=== PATIENT | female | born 1950 | race Caucasian/White ===

== ENCOUNTER 2017-01-05 01:51 | Emergency (ER) | payer MEDICARE, OTHER ==
[2017-01-05 01:58] VITALS: BP 150/64
[2017-01-05] MEDS ORDERED: Azithromycin TAB* 250 MG PO ONE (02:16)
[2017-01-05] MEDS ORDERED: Acetaminophen TAB* 325 MG PO ONE (02:16)
--- NOTE | 2017-01-06 12:45 | ED ---
Fauzia Arzate Alfonso, scribed for Migel Singh MD on 01/05/17 at 0215 . Complex/Multi-Sys Presentation - HPI Summary HPI Summary: This patient is a 66 year old F presenting to [facility] accompanied by with a chief complaint of left ear ache since a week and a half ago, worse since yesterday. The patient rates the pain 7/10 in severity. Symptoms aggravated by nothing. Symptoms alleviated by nothing. Symptoms not alleviated by ibuprofen. Patient reports sore throat, and intermittent left thigh pain. PMHx includes DM and HTN. - History Of Current Complaint Chief Complaint: EDEarPain Time Seen by Provider: 01/05/17 02:05 Hx Obtained From: Patient Onset/Duration: Sudden Onset, Lasting Weeks, Worse Since - yesterday Timing: Constant Severity Currently: Moderate Aggravating Factor(s): nothing Alleviating Factor(s): nothing Associated Signs And Symptoms: Positive: Other - sore throat, and intermittent left thigh pain - Allergies/Home Medications Allergies/Adverse Reactions: Allergies Allergy/AdvReac Type Severity Reaction Status Date / Time BEE STINGS Allergy Intermediate Swelling Uncoded 01/18/12 19:55 SAND FLIES Allergy Intermediate LETHARGY, Uncoded 01/18/12 19:55 SWELLING MOSQUITOS Allergy SWELLING, Uncoded 01/18/12 19:55 FEVER PMH/Surg Hx/FS Hx/Imm Hx Endocrine/Hematology History: Reports: Hx Diabetes Denies: Hx Thyroid Disease Cardiovascular History: Reports: Hx Hypertension Respiratory History: Denies: Hx Asthma, Hx Chronic Obstructive Pulmonary Disease (COPD) GI History: Denies: Hx Ulcer - Surgical History Surgery Procedure, Year, and Place: 3 C-SECTIONS Infectious Disease History: No Infectious Disease History: Denies: Hx Hepatitis, Hx Human Immunodeficiency Virus (HIV), Traveled Outside the [place] in Last 30 Days - Family History Known Family History: Positive: Hypertension, Diabetes - Social History Alcohol Use: Rare Substance Use Type: Reports: None Hx Tobacco Use: No Review of Systems Positive: Sore Throat, Ear Ache - left Positive: Other - intermittent left thigh pain All Other Systems Reviewed And Are Negative: Yes Physical Exam - Summary Physical Exam Summary: VITAL SIGNS: Reviewed. GENERAL: Patient is a well-developed and nourished female who is lying comfortable in the stretcher. Patient is not in any acute respiratory distress. HEAD AND FACE: No signs of trauma. No ecchymosis, hematomas or skull depressions. No sinus tenderness. EYES: PERRLA, EOMI x 2, No injected conjunctiva, no nystagmus. EARS: Hearing grossly intact. Left TM bulging and erythematous. MOUTH: Oropharynx within normal limits. NECK: Supple, trachea is midline, no adenopathy, no JVD, no carotid bruit, no c- spine tenderness, neck with full ROM. CHEST: Symmetric, no tenderness at palpation LUNGS: Clear to auscultation bilaterally. No wheezing or crackles. CVS: Regular rate and rhythm, S1 and S2 present, no murmurs or gallops appreciated. ABDOMEN: Soft, non-tender. No signs of distention. No rebound no guarding, and no masses palpated. Bowel sounds are normal. EXTREMITIES: FROM in all major joints, no edema, no cyanosis or clubbing. NEURO: Alert and oriented x 3. No acute neurological deficits. Speech is normal and follows commands. SKIN: Dry and warm Triage Information Reviewed: Yes Vital Signs On Initial Exam: Initial Vitals Temp Pulse Resp BP Pulse Ox 97.4 F 79 18 150/64 99 01/05/17 01:55 01/05/17 01:55 01/05/17 01:55 01/05/17 01:55 01/05/17 01:55 Vital Signs Reviewed: Yes Diagnostics - Vital Signs Vital Signs Temp Pulse Resp BP Pulse Ox 01/05/17 01:55 97.4 F 79 18 150/64 99 - Laboratory Lab Statement: Any lab studies that have been ordered have been reviewed, and results considered in the medical decision making process. Complex Multi-Symp Course/Dx Assessment/Plan: This patient is a 66 year old F presenting to [facility] accompanied by with a chief complaint of left ear ache since a week and a half ago, worse since yesterday. The patient rates the pain 7/10 in severity. Symptoms aggravated by nothing. Symptoms alleviated by nothing. Symptoms not alleviated by ibuprofen. Patient reports sore throat, and intermittent left thigh pain. PMHx includes DM and HTN. Physical exam reveals left TM bulging and erythema. Therefore, the patient has otitis media. In the ED course the patient was given acetaminophen and Zithromax. Patient will be discharged with prescription for Zithromax and follow up from PCP. The patient is agreeable with this plan. The patient is hemodynamically stable and alert and oriented x3. - Diagnoses Provider Diagnoses: Left otitis media Discharge - Discharge Plan Condition: Stable Disposition: HOME Prescriptions: Azithromycin TAB* [Zithromax TAB (Z-JOSELIN) 250 mg #6 tabs] 250 mg PO DAILY #4 tab Patient Education Materials: Otitis Media (ED) Referrals: Teresa Tay MD [Primary Care Provider] - 3 Days Additional Instructions: RETURN TO THE EMERGENCY DEPARTMENT FOR CHANGING OR WORSENING SYMPTOMS. The documentation as recorded by the Fauzia caro Alfonso accurately reflects the service I personally performed and the decisions made by Francisco mayfield Walter, MD.
== END 2017-01-05 02:31 | disposition home or self-care (01) ==
LOC: ED 01:51
DX: H66.92 Otitis media, unspecified, left ear (principal); E11.9 Type 2 diabetes mellitus without complications; I10 Essential (primary) hypertension
CPT/HCPCS: 99282; A9270-GY

== ENCOUNTER 2017-04-14 19:43 | Emergency (ER) | payer MEDICARE, OTHER ==
[2017-04-14 19:58] VITALS: BP 157/78
[2017-04-14] MEDS ORDERED: Albuterol/Ipratropium NEB.SOL* Albuterol 2.5 MG/Ipratropium 0.5 MG 3 ML INH ONE (20:14)
--- NOTE | 2017-04-14 20:29 | UC ---
Bismark Arzate Gabriel, scribed for Pati Chen MD on 04/14/17 at 2003 . FLU HPI - HPI Summary HPI Summary: This patient is a 67 year old F presenting to [facility] accompanied by her with a chief complaint of flu like illness that began 3 weeks ago. Pt states her was sick. Pt states then she developed body aches, fatgiue and chills. Pt states after 4-5 days started to feel better. Since this time progressive cough, wheeze and sinus congestion. + mild sore throat. Non productive cough. The patient rates the pain 4/10 in severity. Patient reports fatigue, chest, congestion, cough, HOOKER, post nasal drip, and ear pain. No fevers , chills, rash. Pt denies current fevers, chills + mild fatigue + po no n/v/ d. Pt's medications reviewed this visit - History of Current Complaint Chief Complaint: UCRespiratory Stated Complaint: FLU-LIKE SYMPTOMS Time Seen by Provider: 04/14/17 19:48 Hx Obtained From: Patient, Family/Spool Fixer ?: No Onset/Duration: Lasting Weeks - 3, Still Present Severity Currently: Mild Severity Initially: Mild Pain Intensity: 4 Pain Scale Used: 0-10 Numeric Associated Signs & Symptoms: Positive: Cough, Headache - Allergy/Home Medications Allergies/Adverse Reactions: Allergies Allergy/AdvReac Type Severity Reaction Status Date / Time BEE STINGS Allergy Intermediate Swelling Uncoded 04/14/17 19:57 SAND FLIES Allergy Intermediate LETHARGY, Uncoded 04/14/17 19:57 SWELLING MOSQUITOS Allergy SWELLING, Uncoded 04/14/17 19:57 FEVER Home Medications: Home Medications Dextromethorphan-Phenylephrine [Daytime Cold & Flu Relief 10-5-325 mg] 1 cap PO 04/14/17 [History] Ibuprofen [Advil] 200 mg PO 04/14/17 [History] PMH/Surg Hx/FS Hx/Imm Hx Previously Healthy: No Endocrine History: Diabetes - type 2 Other Cardiovascular History: HTN Other History Of: Negative For: HIV, Hepatitis B - Surgical History Surgical History: Yes Surgery Procedure, Year, and Place: 3 C-SECTIONS - Family History Known Family History: Positive: Hypertension Negative: Respiratory Disease, Seizure Disorder - Social History Occupation: Retired Lives: With Family Alcohol Use: Rare Substance Use Type: None Smoking Status (MU): Never Smoked Tobacco Review of Systems Constitutional: Fatigue Skin: Negative Eyes: Negative ENT: Ear Ache, Other - post nasal drip Respiratory: Cough, Other - chest congestion Neurological: Headache All Other Systems Reviewed And Are Negative: Yes Physical Exam Triage Information Reviewed: Yes Appearance: Well-Appearing, No Pain Distress, Well-Nourished Vital Signs: Initial Vital Signs Temp 98.6 F 04/14/17 19:52 Pulse 97 04/14/17 19:52 Resp 18 04/14/17 19:52 BP 157/78 04/14/17 19:52 Pulse Ox 98 04/14/17 19:52 Vital Signs Reviewed: Yes Eye Exam: Normal ENT: Positive: Sinus tenderness - frontal and max, Other - TM x 2 clear + nasal congestion - boggy full turbinates +PND uvula mildine no exudate, no erythema Dental Exam: Normal Neck: Positive: Supple Respiratory: Positive: Other: - + scatterd rhonchi and wheeze no retractions no accessory muscle use + speaking full easy sentences Cardiovascular Exam: Normal Cardiovascular: Positive: RRR, No Murmur, Pulses Normal Abdominal Exam: Normal Abdomen Description: Positive: Nontender, No Organomegaly, Soft Bowel Sounds: Positive: Present Musculoskeletal Exam: Normal Musculoskeletal: Positive: Strength Intact Neurological Exam: Normal Neurological: Positive: Alert Psychological Exam: Normal Psychological: Positive: Normal Response To Family Skin Exam: Normal Diagnostics - Radiology CXR Radiology Interpretation Completed By: Radiologist - NO ACTIVE DISEASE. Re-Evaluation - Re-Evaluation Second Eval Re-Evaluation Time: 20:53 Change: Improved - Pt improved following neb flu and cxr neg Will d.c with MDI , doxy hydrate secretion precaution PCP f/u Pt comfortable and in agreement with plan Flu Course/Dx - Course Course Of Treatment: Pt with cough, congestion, wheeze progressive x 1 week. VSS. pt with scattered wheeze and rhonci on exam. Will check CXR, flu. neb. reassess - Differential Dx/Diagnosis Provider Diagnoses: bronchitis Discharge - Discharge Plan Condition: Stable Disposition: HOME Prescriptions: DOXYcycline CAP(*) [DOXYcycline 100MG CAP(*)] 100 mg PO BID #14 cap Patient Education Materials: Acute Bronchitis (ED) Referrals: Teresa Tay MD [Primary Care Provider] - Additional Instructions: - Stay well hydrated. Drink plenty of non-alcoholic, non-caffinated beverages. - After you have been on antibiotics for 2 days - change your toothbrush and your pillowcase. These infections are spread by secretions - do NOT share eating or drinking utensils - clean items you share with other people such as cell phones, computer mouse, TV remote, computer tablets, etc - Use inhaler every 4 hours today and tomorrow, then every 4hours as needed - Contact your doctor to schedule a follow-up appointment. Contact your doctor or return with questions or concerns The documentation as recorded by the Bismark caro Gabriel accurately reflects the service I personally performed and the decisions made by me, Pati Chen MD.
--- NOTE | 2017-04-14 20:38 | RAD ---
INDICATION: Cough. Wheezing. COMPARISON: None TECHNIQUE: PA and lateral dual-energy views were obtained. FINDINGS: Bones/Soft Tissues: There are no acute bony findings. Cardiomediastinal: The cardiomediastinal silhouette is normal. Lungs: There are no infiltrates. Pleura: There are no pleural effusions. Other: None IMPRESSION: NO ACTIVE DISEASE.
[2017-04-14] MEDS ORDERED: Albuterol HFA INHALER* 8 gm MDI INH ONE (21:11)
[2017-04-14] MEDS ORDERED: DOXYcycline CAP(*) 100 MG PO ONE (21:12)
== END 2017-04-14 21:35 | disposition home or self-care (01) ==
LOC: UCEAST 19:43
DX: J40 Bronchitis, not specified as acute or chronic (principal)
CPT/HCPCS: 71046; 87502; 99213; A9270-GY; G0463

== ENCOUNTER 2017-06-01 20:37 | Emergency (ER) | payer MEDICARE, OTHER ==
[2017-06-01 20:49] VITALS: BP 159/89
[2017-06-01] MEDS ORDERED: diPHENhydraMINE PO* 50 MG PO ONE (21:18)
[2017-06-01] MEDS ORDERED: predniSONE TAB* 20 MG PO ONE (21:18)
--- NOTE | 2017-06-01 21:30 | UC ---
Skin Complaint HPI - HPI Summary HPI Summary: Developed several itchy large, red welts on L forearm, neck/shoulder starting 2 days ago while visiting cousin's house. Was staying at parents and hotel in the nights prior to this. Now pt and are home. has a few small bites on his RFA only. Denies fever, cough, or other illness. 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 Onset/Duration: Gradual Onset, Lasting Days Timing: Constant Onset Severity: Mild Current Severity: Moderate Pain Intensity: 0 Location: Discrete Character: Swelling, Pruritus, Redness Aggravating Factor(s): Touch Alleviating Factor(s): Nothing Associated Signs & Symptoms: Positive: Rash Related History: Insect Bite/Sting <Debby Espinoza - Last Filed: 06/01/17 21:25> <Pati Chen - Last Filed: 06/01/17 21:33> - History of Current Complaint Chief Complaint: UCSkin Time Seen by Provider: 06/01/17 21:04 Stated Complaint: INSECT BITE - Allergy/Home Medications Allergies/Adverse Reactions: Allergies Allergy/AdvReac Type Severity Reaction Status Date / Time Penicillins Allergy Rash Verified 06/01/17 20:51 BEE STINGS Allergy Intermediate Swelling Uncoded 04/14/17 19:57 SAND FLIES Allergy Intermediate LETHARGY, Uncoded 04/14/17 19:57 SWELLING MOSQUITOS Allergy SWELLING, Uncoded 04/14/17 19:57 FEVER Review of Systems Constitutional: Negative Skin: Other - multiple red welts Eyes: Negative ENT: Negative Respiratory: Negative Cardiovascular: Negative Gastrointestinal: Negative Genitourinary: Negative Motor: Negative Neurovascular: Negative Musculoskeletal: Negative Neurological: Negative Psychological: Negative Is Patient Immunocompromised?: No All Other Systems Reviewed And Are Negative: Yes <Debby Espinoza - Last Filed: 06/01/17 21:25> PMH/Surg Hx/FS Hx/Imm Hx Endocrine History: Diabetes Cardiovascular History: Hypertension Other History Of: Negative For: HIV, Hepatitis B - Surgical History Surgical History: Yes Surgery Procedure, Year, and Place: 3 C-SECTIONS - Family History Known Family History: Positive: Hypertension Negative: Respiratory Disease, Seizure Disorder - Social History Lives: With Family Alcohol Use: Rare Substance Use Type: None Smoking Status (MU): Never Smoked Tobacco <Debby Espinoza - Last Filed: 06/01/17 21:25> Physical Exam Triage Information Reviewed: Yes Appearance: No Pain Distress, Obese Vital Signs: Initial Vital Signs Temp 97.3 F 06/01/17 20:43 Pulse 87 06/01/17 20:43 Resp 16 06/01/17 20:43 BP 159/89 06/01/17 20:43 Pulse Ox 100 06/01/17 20:43 Vital Signs Reviewed: Yes Eye Exam: Normal Eyes: Positive: Conjunctiva Clear ENT Exam: Normal ENT: Positive: Normal ENT inspection, Hearing grossly normal, Pharynx normal, TMs normal Neck exam: Normal Neck: Positive: Supple, Nontender, No Lymphadenopathy Respiratory Exam: Normal Respiratory: Positive: Chest non-tender, Lungs clear, Normal breath sounds, No respiratory distress, No accessory muscle use Cardiovascular Exam: Normal Cardiovascular: Positive: RRR, No Murmur Musculoskeletal Exam: Normal Musculoskeletal: Positive: Strength Intact, ROM Intact Neurological Exam: Normal Psychological Exam: Normal Skin Exam: Other - Multiple 2-10cm welt with vesicles and crusting on LFA, neck/ shoulders <Debby Espinoza - Last Filed: 06/01/17 21:25> Vital Signs: Initial Vital Signs Temp 97.3 F 06/01/17 20:43 Pulse 87 06/01/17 20:43 Resp 16 06/01/17 20:43 BP 159/89 06/01/17 20:43 Pulse Ox 100 06/01/17 20:43 <Pati Chen - Last Filed: 06/01/17 21:33> Course/Dx - Diagnoses Provider Diagnoses: bed bug bites <Debby Espinoza - Last Filed: 06/01/17 21:25> Discharge <Debby Espinoza - Last Filed: 06/01/17 21:25> <Pati Chen - Last Filed: 06/01/17 21:33> - Discharge Plan Condition: Stable Disposition: HOME Prescriptions: predniSONE TAB* [Deltasone TAB*] 40 mg PO DAILY #4 tab Patient Education Materials: Bed Bugs (ED) Referrals: Teresa Tay MD [Primary Care Provider] - Additional Instructions: As we discussed, there are no dangers or illnesses spread through bed bug bites -- the main problem is discomfort. Wash the belongings you traveled with in a hot washer and put everything through the dryer twice. Bag up anything that cannot be washed for at least 2 months. If you are still uncomfortable after 3 days of prednisone, please see your primary care provider for recheck. You can take diphenhydramine (benadryl) 25- 50mg up to 4 times per day. Attestation Statement User Type: Provider - I was available for consult. This patient was seen by the advanced practice provider. The patient was not presented to, seen by, or examined by me.-Dayana <Pati Chen - Last Filed: 06/01/17 21:33>
== END 2017-06-01 21:30 | disposition home or self-care (01) ==
LOC: UCEAST 20:37
DX: S50.862A Insect bite (nonvenomous) of left forearm, initial encounter (principal); S10.96XA Insect bite of unspecified part of neck, initial encounter; S40.269A Insect bite (nonvenomous) of unspecified shoulder, initial encounter; W57.XXXA Bitten or stung by nonvenomous insect and other nonvenomous arthropods, initial encounter; Y93.9 Activity, unspecified; Y92.9 Unspecified place or not applicable; Z91.09 Other allergy status, other than to drugs and biological substances; E11.9 Type 2 diabetes mellitus without complications; I10 Essential (primary) hypertension
CPT/HCPCS: 99212; A9270-GY; G0463; J7512

== ENCOUNTER 2019-01-18 19:55 | Emergency (ER) | payer MEDICARE, OTHER ==
[2019-01-18 20:05] VITALS: BP 124/75
--- NOTE | 2019-01-18 20:35 | UC ---
Skin Complaint HPI - HPI Summary HPI Summary: 69-year-old female presents for bee sting to her right forearm. States she was stung at approximately 2:00 this afternoon. Complains of tenderness and swelling around the site of the sting. Reports allergy to bee stings and states that she has been prescribed an EpiPen however has never had to use it for any stings. Denies swelling of the lips, tongue, throat, or difficulty breathing. 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: 4 - Allergy/Home Medications Allergies/Adverse Reactions: Allergies Allergy/AdvReac Type Severity Reaction Status Date / Time Penicillins Allergy Rash Verified 01/18/19 20:06 BEE STINGS Allergy Intermediate Swelling Uncoded 01/18/19 20:06 SAND FLIES Allergy Intermediate LETHARGY, Uncoded 01/18/19 20:06 SWELLING MOSQUITOS Allergy SWELLING, Uncoded 01/18/19 20:06 FEVER PMH/Surg Hx/FS Hx/Imm Hx Endocrine History: Diabetes Cardiovascular History: Hypertension Other History Of: Negative For: HIV, Hepatitis B - Surgical History Surgical History: Yes Surgery Procedure, Year, and Place: 3 C-SECTIONS - Family History Known Family History: Positive: Hypertension Negative: Respiratory Disease, Seizure Disorder - Social History Occupation: Retired Lives: With Family Alcohol Use: Rare Substance Use Type: None Smoking Status (MU): Never Smoked Tobacco Review of Systems All Other Systems Reviewed And Are Negative: Yes Constitutional: Negative: Fever, Chills Skin: Positive: Other - See HPI ENT: Positive: Negative Respiratory: Negative: Shortness Of Breath Cardiovascular: Positive: Negative Gastrointestinal: Positive: Negative Genitourinary: Positive: Negative Motor: Positive: Negative Musculoskeletal: Positive: Negative Neurological: Positive: Negative Is Patient Immunocompromised?: No Physical Exam - Summary Physical Exam Summary: GENERAL APPEARANCE: Alert and cooperative, obese, female who appears to be in no acute distress. MOUTH/THROAT: Pharynx normal. No tonsilar inflammation, swelling, exudate, or lesions. Uvula midline. No swelling of the lips, tongue, or throat. Airway patent. CARDIAC: Normal S1 and S2. No S3, S4 or murmurs. Rhythm is regular. There is no peripheral edema, cyanosis or pallor. Extremities are warm and well perfused. Capillary refill is less than 2 seconds. Peripheral pulses intact. LUNGS: Clear to auscultation without rales, rhonchi, wheezing or diminished breath sounds. ABDOMEN: Positive bowel sounds. Soft, nondistended, nontender. No guarding or rebound. No masses or hepatosplenomegally. MUSKULOSKELETAL: ROM intact to all extremities. No joint erythema or tenderness. Normal muscular development. Normal gait. EXTREMITIES: 10 cm x 10 cm area of tenderness, erythema, mild edema, and increased warmth to mid right anterior forearm. SKIN: Skin normal color, texture and turgor. Triage Information Reviewed: Yes Vital Signs: Initial Vital Signs Temp 98.7 F 01/18/19 20: Pulse 75 01/18/19 20:01 Resp 18 01/18/19 20:01 BP 124/75 01/18/19 20: Pulse Ox 98 01/18/19 20: Vital Signs Reviewed: Yes Course/Dx - Course Course Of Treatment: 69-year-old female presents for bee sting to her right forearm. States she was stung at approximately 2:00 this afternoon. Complains of tenderness and swelling around the site of the sting. Reports allergy to bee stings and states that she has been prescribed an EpiPen however has never had to use it for any stings. Denies swelling of the lips, tongue, throat, or difficulty breathing. Afebrile. Vital signs stable. Patient had a 10 cm x 10 cm area of tenderness, erythema, mild edema, and increased warmth to mid right anterior forearm consistent with a localized reaction to an insect sting. She had no swelling of the lips, tongue, throat, airway was patent, no labored breathing, clear bilateral breath sounds, and otherwise unremarkable exam. Patient was given prednisone 40 mg PO in the clinic and prescribed 40 mg daily for the next 2 days to treat for the localized reaction. She is to follow-up with her primary care provider in 2-3 days if symptoms are not improving. Despite our guidance and warning symptoms requiring immediate evaluation the emergency room were reviewed with the patient. Verbalizes understanding and agrees with plan of care. - Differential Diagnoses - Skin Complaint Differential Diagnoses: Anaphylaxis, Cellulitis, Local Allergic Reaction - Diagnoses Provider Diagnosis: Local reaction to bee sting Discharge ED - Sign-Out/Discharge Documenting (check all that apply): Patient Departure All imaging exams completed and their final reports reviewed: No Studies - Discharge Plan Condition: Stable Disposition: HOME Prescriptions: predniSONE TAB* [Deltasone 20 MG TAB*] 40 mg PO DAILY #4 tab Patient Education Materials: Insect Bite or Sting (ED) Referrals: Teresa Tay MD [Primary Care Provider] - 2 Days Additional Instructions: You appear to be having a severe localized reaction to the bee sting. We gave you dose of prednisone 40 mg in the clinic to help stop the reaction. Continue taking prednisone 40 mg once daily for the next 2 days. Follow-up with your primary care provider in 2-3 days if symptoms are not improving. Seek immediate medical attention in the emergency room if you develop fever greater than 100.5 F, swelling of the lips, tongue, throat, difficulty breathing , or any worsening of symptoms. - Billing Disposition and Condition Condition: STABLE Disposition: Home - Attestation Statements Provider Attestation: Per institutional requirements, I have reviewed the chart, however, I was not consulted specifically or made aware of this patient by the midlevel provider. I did not personally evaluate, interact with , or disposition this patient.
[2019-01-18] MEDS ORDERED: predniSONE TAB* 20 MG PO ONE (20:54)
== END 2019-01-18 21:10 | disposition home or self-care (01) ==
LOC: UCEAST 19:55
DX: S50.861A Insect bite (nonvenomous) of right forearm, initial encounter (principal); E11.9 Type 2 diabetes mellitus without complications; I10 Essential (primary) hypertension; Z88.0 Allergy status to penicillin; Z91.030 Bee allergy status; Z91.038 Other insect allergy status; W57.XXXA Bitten or stung by nonvenomous insect and other nonvenomous arthropods, initial encounter; Y92.9 Unspecified place or not applicable
CPT/HCPCS: 99212; G0463; J7512